=== PATIENT | male | born 1950 ===

== ENCOUNTER 2016-12-24 21:53 | Emergency (ER) | payer SELFPAY ==
[~2016-12-24] VITALS: Ht 160 cm; Wt 74.0 kg
[2016-12-24 22:30] VITALS: BP 171/108
== END 2016-12-25 00:30 | disposition left against medical advice (07) | DRG 951 ==
LOC: ED 21:53 → LWOBS 12-25 00:30
DX: Z91.19 Patient's noncompliance with other medical treatment and regimen (principal)